=== PATIENT | female | born 1955 ===

== ENCOUNTER 2018-03-14 08:08 | Outpatient (CLI) | payer OTHER ==
[~2018-03-14] VITALS: Ht 152.4 cm; Wt 78.9 kg
== END 2018-03-14 08:20 | disposition home or self-care (01) ==
LOC: OFIC 805 08:08
DX: J31.0 Chronic rhinitis (principal); J34.2 Deviated nasal septum; J30.89 Other allergic rhinitis; H69.83 Other specified disorders of Eustachian tube, bilateral; H61.23 Impacted cerumen, bilateral; H90.6 Mixed conductive and sensorineural hearing loss, bilateral; J31.2 Chronic pharyngitis

== ENCOUNTER 2018-04-04 07:54 | Outpatient (CLI) | payer OTHER ==
[~2018-04-04] VITALS: Ht 152.4 cm; Wt 78.9 kg
== END 2018-04-04 08:15 | disposition home or self-care (01) ==
LOC: OFIC 805 07:54
DX: J31.0 Chronic rhinitis (principal); J34.2 Deviated nasal septum; H69.83 Other specified disorders of Eustachian tube, bilateral; J31.2 Chronic pharyngitis

== ENCOUNTER 2021-09-01 06:24 | Day surgery (SDC) | payer OTHER ==
[~2021-09-01 06:24] MED LIST: CALCIUM500 M2 PO; CENTRUM ADULTS1 EACH PO; FISH OIL + D31 EACH PO; VITAMIN C PO; [UNRECOGNIZED DRUG - OTHER] PO
== END 2021-09-01 19:50 | disposition home or self-care (01) ==
LOC: CIR.AMB 06:24
PROVIDERS: ATTEND Surgery
DX: C50.212 Malignant neoplasm of upper-inner quadrant of left female breast (principal); R59.0 Localized enlarged lymph nodes; Z20.822 Contact with and (suspected) exposure to COVID-19; I10 Essential (primary) hypertension; Z86.16 Personal history of COVID-19; N62 Hypertrophy of breast; Z42.1 Encounter for breast reconstruction following mastectomy
CPT/HCPCS: 19301; 19281; 19318; 38525; 78195; A9541; L8699